=== PATIENT | female | born 1985 | race African-American/Black ===

== ENCOUNTER 2024-02-24 22:28 | Emergency (ER) | payer MEDICAID, OTHER ==
[~2024-02-24] VITALS: Ht 160 cm; Wt 67.2 kg
[~2024-02-24 22:28] MED LIST: HYDR-4833; TRAM-297
[2024-02-24 22:47] VITALS: BP 156/93; PULSE 88; RESP 16; O2SAT 95
[2024-02-24 23:48] LABS: Urine Bacteria None Seen /hpf (None Seen)
[2024-02-25 00:11] LABS: Urine Blood Negative /uL (Negative); Urine Clarity Clear (Clear); Urine Color Colorless (Yellow); Urine Protein, UAD Negative (Negative); Urine Specific Gravity 1.007 (1.001-1.035); Urine Urobilinogen Normal (Negative); Urine WBC 1 /hpf (0 - 5)
== END 2024-02-25 00:56 | disposition left against medical advice (07) ==
LOC: ER 22:28
DX: R10.2 Pelvic and perineal pain (principal); Z53.21 Procedure and treatment not carried out due to patient leaving prior to being seen by health care provider
CPT/HCPCS: 81001